=== PATIENT | male | born 1965 | race Caucasian/White ===

== ENCOUNTER 2020-02-22 11:44 | Outpatient (CLI) | payer BC, SELFPAY ==
--- NOTE | ~2020-02-22 | XR_ITS ---
EXAMINATION: XR chest 2V EXAM DATE: 02/22/2020 12:05 INDICATION: Wheezing. TECHNIQUE: Frontal and lateral projections of the chest obtained and reviewed. There is no prior rayna dy for comparison. FINDINGS: The lungs are clear. There are no pleural effusions. The cardiomediastinal silhouette is within normal limits. There is no pneumothorax suspected. The bones and soft tissues are unremarka ble. IMPRESSION: No acute cardiopulmonary findings. Reviewed, dictated and finalized at location A.
== END 2020-02-22 11:45 | disposition home or self-care (01) ==
PROVIDERS: PCP Family Medicine; Visit Provider Family Medicine
DX: R06.2 Wheezing (principal)
CPT/HCPCS: 71046

== ENCOUNTER → 2020-06-15 11:45 | Outpatient (CLI) | payer OTHER, SELFPAY ==
--- NOTE | ~2020-06-15 | US_ITS ---
EXAMINATION: US renal BI EXAM DATE: 06/15/2020 12:08 INDICATION: Acute kidney failure. TECHNIQUE: Multiple grayscale and Doppler images of the kidneys were obtained (by a technologist who performed the scan) and subsequently reviewed. There is no prior study for comparison. FINDINGS: Right kidney: There is normal contour and echogenicity. It measures 10.5 x 6.4 x 5.6 centimeters. T here are no focal renal lesions identified. There is no hydronephrosis. Left kidney: There is normal contour and echogenicity. It measures 10.4 x 5.3 x 5.5 centimeters. The re is a 1 cm cyst. There is no hydronephrosis. Bladder is undistended. IMPRESSION: Sonographically unremarkable kidneys. Reviewed, dictated and finalized at location A. [employer] EQUIPMENT SUPERVISOR
== END ==
PROVIDERS: PCP Family Medicine; Visit Provider Internal Medicine Nephrology
DX: N17.8 Other acute kidney failure (principal)
CPT/HCPCS: 76775

== ENCOUNTER → 2020-09-19 02:17 | Outpatient (CLI) | payer OTHER, SELFPAY ==
[2020-09-19 17:06] LABS: SARS-CoV-2 RNA PCR Negative
== END ==
PROVIDERS: Physician Assistant; PCP Family Medicine; Visit Provider Internal Medicine Nephrology
DX: Z01.812 Encounter for preprocedural laboratory examination (principal); Z20.822 Contact with and (suspected) exposure to COVID-19
CPT/HCPCS: C9803; U0003; U0005

== ENCOUNTER 2020-09-23 10:21 | Outpatient (CLI) | payer OTHER, SELFPAY ==
[2020-09-16 09:18] VITALS: BMI 37.5
[2020-09-23] VITALS (10 sets, daily range): BP systolic 139–165; BP diastolic 11–102; PULSE 44–54; RESP 14–20; O2SAT 97–100
--- NOTE | ~2020-09-23 | US_ITS ---
EXAMINATION: US biopsy renal DATE: 09/23/2020 16:35 INDICATION: Chronic stage IV kidney disease TECHNIQUE: The procedure including the risks, benefits, and alternatives was discussed with the patie nt. Risks discussed included bleeding and infection. The patient understood the risks and agreed to p roceed. A timeout was performed to verify the patient's name, date of , and procedure to be p erformed. The skin overlying the left kidney was prepped and draped in usual sterile fashion. Anest hetic was administered with 1% lidocaine subcutaneously. An 18 gauge core biopsy needle was then use d to obtain 3 core biopsy specimens under continuous sonographic guidance. The entry site was cleaned and dressed. There were no immediate complications. FINDINGS: Ultrasound images demonstrate the needle in the kidney. IMPRESSION: 1. Ultrasound-guided random left kidney core needle biopsy. Reviewed, dictated and finalized at location A.
[2020-09-23 11:19] LABS: Mean Platelet Volume 9.4 fl (7.4-10.4); Platelet Count Result 193 k/mm3 (150-375)
[2020-09-23 12:13] LABS: Prothrombin Time 13.9 Seconds (11.1-14.7)
[2020-09-23] MEDS: cloNIDine HCL 0.2 MG TABLET PO (14:47)
--- NOTE | 2020-09-23 17:46 | SUR.PHASEII ---
DR HOLDER NOTIFIED THAT PT FLANK SITE IS STILL DRY INTACT WITH NO OBVIOUS SIGNS OF BLEEDING. PT DISCHARGED HOME WITH HIS MOTHER.
== END 2020-09-23 17:35 | disposition home or self-care (01) ==
PROVIDERS: Radiology Diagnostic Radiology; PCP Family Medicine; Visit Provider Internal Medicine Nephrology
DX: N18.4 Chronic kidney disease, stage 4 (severe) (principal); I12.9 Hypertensive chronic kidney disease with stage 1 through stage 4 chronic kidney disease, or unspecified chronic kidney disease; R80.8 Other proteinuria
CPT/HCPCS: 36415; 50200; 76942; 85049; 85610; 88300; 88305; 88313; 88329; 88346; 88348; 88350; A9270; C9803; U0003; U0005

== ENCOUNTER → 2020-10-08 06:36 | Outpatient (CLI) | payer OTHER, SELFPAY ==
[2020-10-08 20:06] LABS: SARS-CoV-2 RNA PCR Negative
== END ==
PROVIDERS: Physician Assistant; PCP Family Medicine; Visit Provider Family Medicine
DX: Z20.822 Contact with and (suspected) exposure to COVID-19 (principal); R09.89 Other specified symptoms and signs involving the circulatory and respiratory systems
CPT/HCPCS: C9803; U0003; U0005

== ENCOUNTER 2022-05-29 07:31 | Outpatient (CLI) | payer MEDICARE, OTHER, SELFPAY ==
--- NOTE | ~2022-05-29 | NM_ITS ---
EXAMINATION: NM cynthia stress w perfusion DATE: 05/29/2022 11:37 INDICATION: Abnormal electrocardiogram. Dyspnea. TECHNIQUE: Rest images were obtained following intravenous administration of 10.5 mCi Tc99m tetrofosm in (Myoview). The patient was infused intravenously with Lexiscan (regadenoson). Then, 32.7 mCi Tc99m tetrofosmin (Myoview) was administered intravenously, and stress images were obtained. Data was antwon nstructed into short axis and horizontal and vertical long axis SPECT images. Gated SPECT images were also obtained. COMPARISON: None. FINDINGS: There is no definite reversible or fixed perfusion abnormality to suggest ischemia or infar ction. There is no segmental wall motion abnormality. Left ventricular ejection fraction measures 5 1%. IMPRESSION: 1. No definite ischemia or infarct. 2. Normal left ventricular ejection fraction measuring 51%. Reviewed, dictated and finalized at location A. [employer]
--- NOTE | 2022-05-29 07:55 | EST_ITS ---
Patient Info Name: Ole Vale Age: 57 years : 1965 Gender: Male Ht: 75 in Wt: 315 lbs BSA: 2.80 m2 HR: 75 bpm BP: 143 / 97 mmHg Heart Rhythm: Sinus Rhythm Exam Date: 05/29/2022 9:44 AM Exam Location: [facility] Stress Patient Status: Outpatient Admit Date: 05/29/2022 Staff Ordering Physician: Kwesi Sylvester DO Attending Provider: Kwesi Sylvester DO Exercise Technologist: Rhina Morales CT Exercise Physician: Kwesi Sylvester DO Exam Type: CA stress cynthia w NM Study Info Indications R06.09 - Other forms of dyspnea A regadenoson stress test was performed. Summary 1. 1. Negative lexiscan stress test for ischemic ST changes by ECG criteria. 2. 2. Baseline hypertension. 3. 3. Nuclear scan to follow and will be reported separately. Please correlate with it. 4. 4. Patient informed of the above results. Protocol: Lexiscan Stress ECG Details Stage: REST Duration (min): 0 min : 58 sec HR (bpm): 74 SBP (mmHg): 143 DBP (mmHg): 97 Stage: REST Duration (min): 7 min : 29 sec HR (bpm): 81 SBP (mmHg): 143 DBP (mmHg): 97 Stage: STAGE 1 Duration (min): 1 min : 0 sec HR (bpm): 88 SBP (mmHg): 167 DBP (mmHg): 83 Stage: RECOVERY Duration (min): 1 min : 0 sec HR (bpm): 85 SBP (mmHg): 167 DBP (mmHg): 83 Stage: RECOVERY Duration (min): 2 min : 0 sec HR (bpm): 81 SBP (mmHg): 167 DBP (mmHg): 83 Stage: RECOVERY Duration (min): 3 min : 0 sec HR (bpm): 80 SBP (mmHg): 164 DBP (mmHg): 85 Stage: RECOVERY Duration (min): 3 min : 2 sec HR (bpm): 80 SBP (mmHg): 164 DBP (mmHg): 85 Rest HR: 81 bpm Peak HR: 89 bpm Rest Sys BP: 143 mmHg Peak Sys BP: 167 mmHg Max Pred HR: 162 bpm % Max Pred HR: 55 % Target HR: 138 bpm Max RPP: 14,863 bpm*mmHg Termination Reason: Completed protocol Cardiac Symptoms: Shortness of breath Total Time: 1 min : 0 sec Rest Rock BP: 97 mmHg [place] BP: 83 mmHg Total Dose: 0.4 mg Resting ECG Sinus rhythm, minimal Q waves in inferior leads, borderline T wave in high lateral leads. Stress ECG No ST changes. Arrhythmias None. Report Signatures
--- NOTE | 2022-05-29 07:55 | ECHO_ITS ---
Patient Info Name: Ole Vale Age: 57 years : 1965 Gender: Male Ht: 75 in Wt: 316 lbs BSA: 2.81 m2 HR: 78 bpm BP: 150 / 51 mmHg Technical Quality: Fair Exam Date: 05/29/2022 8:00 AM Exam Location: [facility] Pulmonary Patient Status: Outpatient Admit Date: 05/29/2022 Staff Ordering Physician: Kwesi Sylvester DO Straight Tooth Gear Generator Operator: Nikki Teran RDCS Attending Provider: Kwesi Sylvester DO Referring Physician: Higinio RODRIGUEZ; Exam Type: CA echo doppler color flow Study Info Indications R06.09 - Other forms of dyspnea Complete two-dimensional, color flow and Doppler transthoracic echocardiogram is performed. Summary 1. Complete two-dimensional, color flow and Doppler transthoracic echocardiogram is performed. 2. Left ventricular chamber dimension is normal. 3. Left ventricular systolic function is normal, estimated at 55-60%. 4. There is moderately increased left ventricular wall thickness. 5. The left ventricular diastolic function is grade I diastolic dysfunction. 6. E/e' 22 is elevated. 7. Global longitudinal strain is abnormal at -9.4%. 8. Left atrial chamber dimension is mildly enlarged. 9. There is mild aortic valve sclerosis. 10. The mitral valve has moderately calcified annulus. 11. No pulmonary hypertension, estimated pulmonary arterial systolic pressure is 19 mmHg. Left Ventricle E/e' 22 is elevated. Global longitudinal strain is abnormal at -9.4%. Left ventricular chamber dimension is normal. Left ventricular systolic function is normal, estimated at 55-60%. There is moderately increased left ventricular wall thickness. The left ventricular diastolic function is grade I diastolic dysfunction. Right Ventricle Right ventricular chamber dimension is normal. Right ventricular systolic function is normal. Left Atria Left atrial chamber dimension is mildly enlarged. Right Atria Right atrial chamber dimension is normal. Aortic Valve The aortic valve is trileaflet. There is mild aortic valve sclerosis. There is no aortic valve stenosis. There is no aortic valve regurgitation. Pulmonic Valve There is no pulmonic regurgitation. Mitral Valve The mitral valve has moderately calcified annulus. There is no mitral valve stenosis. There is no mitral valve regurgitation. Tricuspid Valve There is no tricuspid valve regurgitation. No pulmonary hypertension, estimated pulmonary arterial systolic pressure is 19 mmHg. Pericardium/Pleural There is no pericardial effusion. Inferior Vena Cava Normal inferior vena cava with >50% collapse upon inspiration consistent with normal right atrial pressure, 5 mmHg. Aorta The aortic root size at the sinus of Valsalva is normal. Left Ventricular Outflow Tract Name Value Normal LVOT 2D LVOT Diameter 2.1 cm LVOT Doppler LVOT Peak Gradient 7 mmHg LVOT Mean Gradient 4 mmHg LVOT VTI 26 cm LVOT VTI/AV VTI Ratio 0.9 LVOT Stroke Volume 88 ml LVOT CO 6.5 l/min
== END 2022-05-29 07:32 | disposition home or self-care (01) ==
LOC: ANHCARD 07:50
PROVIDERS: PCP Family Medicine; Visit Provider Internal Medicine Cardiovascular Disease
DX: R06.09 Other forms of dyspnea (principal); I35.8 Other nonrheumatic aortic valve disorders
CPT/HCPCS: 78452; 93017; 93306; A9502; J2785

== ENCOUNTER 2022-07-21 08:09 | Outpatient (CLI) | payer MEDICARE, OTHER, SELFPAY ==
--- NOTE | 2022-08-11 12:06 | WPDHOMESLEEP ---
Sleep Study - Home Unattended Date of Study: 07/21/22 Ordering Provider: Kwesi Sylvester DO Interpreting Provider: Brenda Jeronimo DO Home Sleep Study Type: Watch PAT Height: 1.91 m Weight: 149.685 kg Body Mass Index: 41.2 Neck Circumference (inches): 20.5 [place]: 17 Reason for Sleep Study Daytime hypersomnia Sleep History The patient is a 57-year-old male with hypertension, glomerulonephritis, chronic hepatitis C, , dyslipidemia, IgA nephropathy, CKD on PD, anxiety and history of tobacco use that had a sleep study ordered by his returned telephone equipment appraiser for evaluation of sleep apnea. The patient occasionally awakens from sleep short of breath. He occasionally awakens at night with heartburn, belching or cough. He frequently snores loudly enough that others complain. He denies having trouble sleeping when he has a cold. He rarely wakes up gasping for air throughout the night. He frequently has breathing problems at night observed by himself or others. He occasionally sweats excessively at night. He frequently has heart palpitations or irregular heartbeats during the night. He frequently falls asleep during the day but never while driving. He denies cataplexy and hypnagogic / hypnopompic hallucinations. He frequently has trouble at school or work due to sleepiness. He occasionally feels unable to move her waking up or falling asleep. He denies feeling afraid of going to sleep. He rarely has nightmares. He rarely remembers his dreams. He denies having thoughts racing through his mind. He frequently feels sad or depressed. He occasionally has anxiety. He occasionally has muscular tension. He rarely notices parts of his body jerk. He rarely kicks during the night. He occasionally has crawling and aching feelings in his legs but denies having leg pain during the night. He denies grinding his teeth during sleep and denies awakening with morning jaw pain. He is occasionally bothered by pain during the day but never awakened by pain during the night. He rarely wakes up feeling stiff in the morning. He rarely wakes up with sore and achy muscles. He rarely wakes up with pain in the neck, spine or other joints. He goes to bed at midnight on both weekdays and weekends. He is able to fall asleep shortly. He wakes up 6-8 times throughout the night to urinate. He is able to fall back asleep within a few minutes. He wakes up at 8:30 a.m. on weekdays and at 9:00 a.m. on the weekends. He typically gets 5 hours of sleep per night. He will stay in bed for 15 minutes after waking up in the morning. He currently lives with his mother. He does not consume any caffeinated beverages within 2 hours of bedtime. He does not engage in physical exercise before bedtime. He will watch television before falling asleep. He will take naps in the afternoon or the evening and they are refreshing. He drinks 12 oz of caffeinated soda per day. He drinks 45-50 oz 7 alcoholic beverage per day. He is a former smoker. He currently uses THC gummies. [facility] Past Medical History Medical History Acute kidney failure Benign hypertension without CHF Glomerulonephritis Hep C w/o coma, chronic Hepatitis C History of renal dialysis Osteomyelitis of lumbar spine Renal hypertension, non-vascular Sepsis Family History Family History Mother Hypertension Family history of malignant neoplasm Family history of type 2 diabetes mellitus Diabetes mellitus Family history of diabetes mellitus in first degree relative Grandparent Cerebrovascular accident Sibling Diabetes mellitus Hypertension Father Patient's father is in good health Hypertension Family history of kidney disease Social History Social History Social History: Smoking status: Former smoker Tobacco type:
[2022-08-11 12:17] VITALS: BMI 41.2
== END 2022-07-22 09:31 | disposition home or self-care (01) ==
LOC: ANHCSM 08:13
PROVIDERS: PCP Family Medicine; Visit Provider Internal Medicine Cardiovascular Disease
DX: G47.33 Obstructive sleep apnea (adult) (pediatric) (principal); G47.10 Hypersomnia, unspecified; Z87.891 Personal history of nicotine dependence; I10 Essential (primary) hypertension
CPT/HCPCS: 95800

== ENCOUNTER 2022-10-07 09:07 | Outpatient (CLI) | payer OTHER, MEDICARE, SELFPAY ==
--- NOTE | 2022-10-07 14:03 | P.PCNPFT_ITS ---
PFT Procedure Performed PFT Procedure Performed Spirometry with Pre/Post Bronchodilator Plethysmography (Lung Vol) Diffusing Cap (DLCO) Flow Vol Loop PFT Interpretation Lung volumes were measured with the body plethysmography method. The mildly diminished total lung capacity could be related to restrictive respiratory disease. Spirometry showed normal expiratory flow rates and a diminished FEV1 to FVC ratio 60% indicative of mild obstructive airway disease. Following administration of a bronchodilator there was significant increase in the FEV1. Lung diffusion capacity is within the normal range at 92% predicted. The flow- volume loop is consistent with moderate obstructive airway disease. Impression: Combined restrictive respiratory and obstructive airway disease with significant response to bronchodilators on this testing. Lung diffusion capacity within the normal range.
--- NOTE | 2022-10-07 14:07 | WPDSIXMINUTE ---
Six Minute Walk Procedure Procedure Performed Pulmonary Stress Test (6 min walk) Six Minute Walk Six Minute Walk: This 6 minute walk test was carried out with the patient breathing ambient air. The pre walk baseline oxyhemoglobin saturation was 95%. The patient walked approximately 244 m with no stops during walking. During the walk the oxyhemoglobin saturation remained in range of 92% to 98%. The perceived dyspnea on the Christopher scale was 1 at baseline and increased to 3 at the end of testing. Impression: No evidence of oxyhemoglobin desaturation on this testing.
== END 2022-10-07 09:08 | disposition home or self-care (01) ==
LOC: ANHPFT 09:08
PROVIDERS: PCP Family Medicine; Visit Provider Nurse Practitioner Family
DX: R06.09 Other forms of dyspnea (principal); R94.2 Abnormal results of pulmonary function studies
CPT/HCPCS: 94060; 94618; 94726; 94729

== ENCOUNTER 2022-10-12 08:19 | Outpatient (CLI) | payer MEDICARE, OTHER, SELFPAY ==
--- NOTE | 2022-11-02 11:40 | WPDSLEEPSTUD ---
Sleep Study Date of Study: 10/12/22 Ordering Provider: Ricardo Ham APRN Interpreting Physician: Brenda Jeronimo DO Sleep Study Type: CPAP Titration Height: 1.91 m Weight: 149.685 kg Body Mass Index: 41.2 Neck Circumference (inches): 20.5 [place]: 9 Reason for Sleep Study The patient had a WatchPAT home sleep test on 07/21/2022 that showed an overall AHI of 39.4 with desaturation down to 78%. He had 10.7% of total sleep time in probable [place] respirations. Sleep History The patient is a 57-year-old male with hypertension, glomerulonephritis, chronic hepatitis C, , dyslipidemia, IgA nephropathy, CKD on PD, anxiety and history of tobacco use that had a sleep study ordered by his ballast inspector for evaluation of sleep apnea.? The patient occasionally awakens from sleep short of breath.? He occasionally awakens at night with heartburn, belching or cough.? He frequently snores loudly enough that others complain.? He denies having trouble sleeping when he has a cold.? He rarely wakes up gasping for air throughout the night.? He frequently has breathing problems at night observed by himself or others.? He occasionally sweats excessively at night.? He frequently has heart palpitations or irregular heartbeats during the night.? He frequently falls asleep during the day but never while driving.? He denies cataplexy and hypnagogic / hypnopompic hallucinations.? He frequently has trouble at school or work due to sleepiness.? He occasionally feels unable to move her waking up or falling asleep.? He denies feeling afraid of going to sleep.? He rarely has nightmares.? He rarely remembers his dreams.? He denies having thoughts racing through his mind.? He frequently feels sad or depressed.? He occasionally has anxiety.? He occasionally has muscular tension.? He rarely notices parts of his body jerk.? He rarely kicks during the night.? He occasionally has crawling and aching feelings in his legs but denies having leg pain during the night.? He denies grinding his teeth during sleep and denies awakening with morning jaw pain.? He is occasionally bothered by pain during the day but never awakened by pain during the night.? He rarely wakes up feeling stiff in the morning.? He rarely wakes up with sore and achy muscles.? He rarely wakes up with pain in the neck, spine or other joints.? He goes to bed at midnight on both weekdays and weekends.? He is able to fall asleep shortly.? He wakes up 6-8 times throughout the night to urinate.? He is able to fall back asleep within a few minutes.? He wakes up at 8:30 a.m. on weekdays and at 9:00 a.m. on the weekends.? He typically gets 5 hours of sleep per night.? He will stay in bed for 15 minutes after waking up in the morning.? He currently lives with his mother.? He does not consume any caffeinated beverages within 2 hours of bedtime.? He does not engage in physical exercise before bedtime.? He will watch television before falling asleep.? He will take naps in the afternoon or the evening and they are refreshing.? He drinks 12 oz of caffeinated soda per day.? He drinks 45-50 oz 7 alcoholic beverage per day.? He is a former smoker.? He currently uses THC gummies. [facility] Past Medical History Medical History Acute kidney failure Benign hypertension without CHF Glomerulonephritis Hep C w/o coma, chronic Hepatitis C History of renal dialysis Osteomyelitis of lumbar spine Renal hypertension, non-vascular Sepsis Family History Family History Mother Hypertension Family history of malignant neoplasm Family history of type 2 diabetes mellitus Diabetes mellitus Family history of diabetes mellitus in first degree relative Grandparent Cerebrovascular accident Sibling Diabetes mellitus Hypertension Father Patient's father is in good health Hypertension Family history of kidney disease S
[2022-11-02 12:01] VITALS: BMI 41.2
== END 2022-10-13 06:07 | disposition home or self-care (01) ==
LOC: ANHCSM 08:20
PROVIDERS: PCP Family Medicine; Visit Provider Nurse Practitioner Family
DX: G47.30 Sleep apnea, unspecified (principal); G47.33 Obstructive sleep apnea (adult) (pediatric)
CPT/HCPCS: 95811

== ENCOUNTER 2022-12-01 17:27 | Inpatient (IN) | payer MEDICARE, SELFPAY ==
[2022-12-01] VITALS (8 sets, daily range): BP systolic 110–168; BP diastolic 74–94; PULSE 98–110; RESP 20–30; TEMP 36.9–37.2; O2SAT 98–100; BMI 41.0
--- NOTE | ~2022-12-01 | XR_ITS ---
Portable chest x-ray Comparison: 02/22/2020 Clinical History: Tube placed Findings: Endotracheal tube and NG tube are in satisfactory positions. There is mild to moderate pul monary edema pattern with central congestive changes. Cardiomediastinal silhouette is prominent, pos sibly due to AP technique. Bones and soft tissues are unremarkable. Impression: Support tubes, as above. Mild to moderate pulmonary edema pattern with central congestive changes. Reviewed, dictated and finalized at location . Impression: Support tubes, as above. Mild to moderate pulmonary edema pattern with central congestive changes.
--- NOTE | ~2022-12-01 | XR_ITS ---
Portable chest x-ray Comparison: 12/02/2022 at 1:55 AM Clinical History: Line placement Findings: Left-sided central venous line tip is at the superior left mediastinum. NG tube and ET tub e are in satisfactory positions. Mild to moderate pulmonary edema pattern is again present. Possible minimal pleural effusions. No pneumothorax. Cardiomediastinal silhouette is stable. Bones and soft t issues are unremarkable. Impression: Left IJ line tip is at the superior left mediastinum. Consider advancement into the SVC. Additional support tubes remain in place, as above. Persistent mild to moderate pulmonary edema possible minimal pleural effusions. Reviewed, dictated and finalized at location . Impression: Left IJ line tip is at the superior left mediastinum. Consider advancement into the SVC. Additional support tubes remain in place, as above. Persistent mild to moderate pulmonary edema possible minimal pleural effusions.
--- NOTE | ~2022-12-01 | XR_ITS ---
Supine portable view of the abdomen Clinical history: NG tube placement Findings: NG tube is in satisfactory position. Bowel gas pattern is nonspecific. No evidence for obst ruction or free air. No abnormal mass lesion or calcification is seen. Osseous structures are intact. Impression: NG tube in satisfactory position. Reviewed, dictated and finalized at location . Impression: NG tube in satisfactory position.
--- NOTE | ~2022-12-01 | CT_ITS ---
EXAMINATION: CTA chest abdomen pelvis DATE: 12/01/2022 18:27 INDICATION: Chest and abdominal pain. TECHNIQUE: Computed tomographic angiography (CTA) of the chest, abdomen, and pelvis was performed wit h 100 mL Omnipaque-350 intravenous contrast. Automated exposure control and iterative reconstruction technique were employed. The dose-length product was 1996.89 mGy-cm. Maximum intensity projection 3D- reconstructions of the aorta and other arteries were constructed by the technologist on a separate wo rkstation. COMPARISON: CT abdomen and pelvis 03/07/2014 FINDINGS: CHEST CTA: There is mild emphysema. There are dependent airspace and groundglass opacities in the lower lobes. T here are scattered small peripheral airspace opacities in the lungs bilaterally. No pleural effusion. The heart size is normal. There are coronary artery calcifications. No pericardial effusion. There i s mild aortic atherosclerosis. No aneurysm or dissection. There is moderate thoracic spondylosis. ABDOMEN AND PELVIS CTA: The liver is normal. The gallbladder is distended and contains a gallstone. The spleen, pancreas, and right adrenal gland are normal. There is chronic thickening of left adrenal gland, likely benign. Th ere are cysts in the kidneys measuring up to 2.1 cm on the right. There is mild atrophy of the kidney s. The prostate is mildly enlarged. A peritoneal dialysis catheter is noted. There are no dilated loo ps of bowel. The appendix is normal. There are no pathologically enlarged lymph nodes. There is no fr ee intraperitoneal fluid. There is mild aortic atherosclerosis. There is severe lumbar spondylosis. T here is interbody fusion at T12-L1. IMPRESSION: 1. Mild aortic atherosclerosis. No aneurysm or dissection. 2. Multifocal lung disease, likely pneumonia. 3. Mild emphysema. 4. Cholelithiasis. Gallbladder distention may be secondary to fasting. Correlate with physical exam t o exclude acute cholecystitis. Reviewed, dictated and finalized at location E. IMPRESSION: 1. Mild aortic atherosclerosis. No aneurysm or dissection. 2. Multifocal lung disease, likely pneumonia. 3. Mild emphysema. 4. Cholelithiasis. Gallbladder distention may be secondary to fasting. Correlat e with physical exam to exclude acute cholecystitis.
--- NOTE | ~2022-12-01 | XR_ITS ---
Portable chest x-ray Comparison: 12/02/2022 at 3:11 AM Clinical History: Respiratory distress Findings: Endotracheal tube and NG tube are in satisfactory positions. Left IJ line tip remains at t he superior mediastinum. There is mild pulmonary edema pattern. Small left pleural effusion present. Cardiomediastinal silhouette is stable. Bones and soft tissues are unremarkable. Impression: Mild pulmonary edema pattern with small left pleural effusion. Left IJ line tip remains at the superior left mediastinum. Advancement into the SVC is advised. ET tube and NG tube are in satisfactory positions. Reviewed, dictated and finalized at location . Impression: Mild pulmonary edema pattern with small left pleural effusion. Left IJ line tip remains at the superior left mediastinum. Advancement into the SVC is advised. ET tube and NG tube are in satisfactory positions.
--- NOTE | 2022-12-01 17:29 | ECG_ITS ---
Measurements Intervals [place] Rate: 103 P: 40 TN: 141 QRS: 11 QRSD: 97 T: 79 QT: 305 QTc: 401 Interpretive Statements SINUS TACHYCARDIA POSSIBLE LEFT ATRIAL ENLARGEMENT MINIMAL Q WAVES- ANTEROLAT/HIGH LAT LEADS BORDERLINE ST-T WAVE ABNORMALITY- HIGH LATERAL LEADS BORDERLINE ECG NO PREVIOUS ECG AVAILABLE FOR COMPARISON Electronically Signed On 12-01-2022 20:22:39 CDT by Kwesi Sylvester D.O.
[2022-12-01] MEDS: MORPHINE SULFATE (*CRX) 4 MG/ML INJ IV PUSH ×2 (17:51→18:55)
--- NOTE | 2022-12-01 17:59 | ED.SOB ---
HPI - SOB/Dyspnea General Chief Complaint: Shortness of Breath/Dyspnea Stated Complaint: SOB History of Present Illness HPI Narrative: This is a 57-year-old male with past history of renal failure on hemodialysis, who is brought in by EMS for shortness of breath and chest pain. The patient states his chest pain and shortness of breath began this morning and progressively worsened. He denies any known trauma, nausea or loss of consciousness. EMS reports on arrival, the patient was hypoxic. He was started on 6 L of O2 with improvement of sats to 96%. The patient took 4 aspirin. Related Data Home Medications Medication Instructions Recorded Confirmed furosemide 80 mg tablet 80 mg PO BID 04/30/22 09/16/22 Allergies Allergy/AdvReac Type Severity Reaction Status Date / Time No Known Allergies Allergy Verified 12/01/22 17:30 Review of Systems Review of Systems: CONSTITUTIONAL: Denies fever, chills, or sweats. CARDIOVASCULAR: Chest pain denies palpitations, or edema. RESPIRATORY: Dyspnea denies cough GASTROINTESTINAL: Abdominal pain denies nausea, vomiting, or diarrhea. GENITOURINARY: Denies dysuria or hematuria. SKIN: Denies rash or itching. MUSCULOSKELETAL: Denies back pain, joint pain, or myalgia. NEUROLOGIC: Denies headache, numbness, dizziness, or weakness. PSYCHIATRIC: Denies anxiety or depression. [facility] Past Medical History Medical History Acute kidney failure Benign hypertension without CHF Glomerulonephritis Hep C w/o coma, chronic Hepatitis C History of renal dialysis Osteomyelitis of lumbar spine Renal hypertension, non-vascular Sepsis Family History Family History Mother Hypertension Family history of malignant neoplasm Family history of type 2 diabetes mellitus Diabetes mellitus Family history of diabetes mellitus in first degree relative Grandparent Cerebrovascular accident Sibling Diabetes mellitus Hypertension Father Patient's father is in good health Hypertension Family history of kidney disease Social History Social History Social History: Smoking packs per day: 0.75 Smoking cigarettes per day: 15.0 Years smoked: 20 Smoking pack-years: 15.00 Smoking status: Former smoker Tobacco type: cigarettes and e-cigarettes/vaping Second hand tobacco smoke exposure: No Smoking end date: 05/24/05 Additional smoking assessment comments: Currently vapes. Alcohol intake: former Substance use: never Substance use type: does not use Lack of Transportation: No Lack of Food: Never True Current Housing: I Have Housing Concerned About Future Housing: No Difficulty Paying Gas/Electric Bills: No Difficulty Paying for Meds: No Currently Unemployed: No Education: Bachelor's Degree Difficulty w/ Childcare or Family Care: No Living arrangements: alone Occupation/Education: retired Gender identity (if verbalized by the patient): Male Sexual Orientation (if Verbalized by the Patient): Straight or Heterosexual Exam Narrative: GENERAL: Well-developed, well-nourished, appears uncomfortable HEAD: Normocephalic, atraumatic. EYES: PERRLA and EOMI. ENT: Nares clear, no rhinorrhea or epistaxis. Mucous membranes moist. Oropharynx without tonsillar hypertrophy exudate or other lesions. NECK: Supple. No adenopathy or masses. No JVD CHEST: Clear to auscultation. No respiratory distress. No wheezes rales or rhonchi HEART: Tachycardic with regular rhythm. No murmur heard. 1+ bilateral lower extremity pulses ABDOMEN: Soft, nontender, nondistended, normal active bowel sounds. EXTREMITIES: Normal range of motion. No edema. AV fistula with good thrill in the left arm SKIN: Cyanotic with mottling noted to the bilateral lower extremities and cool. Skin otherwise d
--- NOTE | 2022-12-01 18:10 | PC.NURSE ---
Pt to CT via stretcher at this time
[2022-12-01 18:16] LABS: Basophils Percent Auto 1.3 % (0.2-1.2); Hemoglobin 11.4 g/dL (14.0-18.0); Immature Granulocyte Absolute 0.12 K/mm3 (0.00-0.031); Immature Granulocyte Percent A 3.8 % (0-0.5); Immature Platelet Fraction Pct 5.6 % (0.9-11.2); Lymphocytes Percent Auto 3.2 % (18.3-44.2); Mean Corpuscular HGB Conc 33.5 g/dl (32-36); Mean Corpuscular Hemoglobin 30.5 pg (26-34); Mean Corpuscular Volume 90.9 fl (80-100); Mean Platelet Volume 12.2 fl (7.4-10.4); Monocytes Absolute Auto 0.3 K/mm3 (0.1-0.6); Monocytes Percent Auto 10.5 % (2.6-8.5); Neutrophils Absolute Auto 2.6 K/mm3 (1.3-6.7); Neutrophils Percent Auto 81.2 % (45.5-73.1); Platelet Count Result 65 k/mm3 (150-375); Red Blood Count 3.74 M/mm3 (4.6-6.20); Red Cell Distribution Width 15.6 % (11.5-14.5); White Blood Count 3.1 K/mm3 (4.5-10.0)
[2022-12-01 18:24] LABS: INR 1.4; Prothrombin Time 17.9 Seconds (11.1-14.7)
[2022-12-01 18:25] LABS: Partial Thromboplastin Time 27.9 SECONDS (22.3-36.8)
[2022-12-01 18:32] LABS: Albumin Level 3.4 g/dL (3.5-5.1); Alkaline Phosphatase 56 U/L (38-126); Anion Gap 25 mmol/L (8-16); Aspartate Amino Transferase 125 U/L (17-59); Blood Urea Nitrogen 92 mg/dL (9-20); Carbon Dioxide 14 mmol/L (22-30); Chloride 97 mmol/L (98-107); Estimated CRCL calculation 14 ml/min; Estimated Glomerular Filt Rate 7; Glucose 130 mg/dL (65-110); Potassium 4.7 mmol/L (3.4-5.0); Sodium 136 mmol/L (137-145)
[2022-12-01 18:34] LABS: Lactic Acid Reflex 6.7 mmol/L (0.7-2.0)
[2022-12-01 18:38] LABS: Anisocytosis 1+ (NORMAL); Platelet Estimate Decreased (Adequate); Poikilocytosis 1+ (NORMAL)
[2022-12-01 18:39] LABS: Burr Cells 1+ (NORMAL); Ovalocytes 1+ (NORMAL); Schistocytes Rare (NORMAL); Tear Drop Cells 1+ (NORMAL)
[2022-12-01] MEDS: SODIUM CHLORIDE 0.9% IV 1,000 ML 999 ML IV CONT (18:55)
[2022-12-01 19:04] LABS: Alanine Aminotransferase 74 U/L (6-50)
[2022-12-01] MEDS: cefTRIAXone 2 GM/NS 100 ML 2 GM/100 ML BAG IVPB (19:16)
[2022-12-01] MEDS: AZITHROMYCIN 500 MG/NS 250 ML 500 MG/250 ML BAG 250 MG IVPB (19:49)
[2022-12-01] MEDS: HEPARIN SOD/D5W 100 UNITS/ML 25,000 UNITS/250 ML BAG 10 UNITS IV CONT (20:18)
--- NOTE | 2022-12-01 20:34 | PM.IMHP ---
H&P: HPI History of Present Illness Date/Time: 12/01/22 20:34 Chief Complaint: shortness of breath Narrative: This is a 57-year-old male with past medical history significant for morbid obesity, end-stage renal disease on hemodialysis, prior peritoneal dialysis, peritoneal catheter still in place, left upper extremity fistula functioning, hepatitis-C, hypertension. patient presents to the emergency room due to shortness of breath arrived via EMS. Prior to this patient states that he has been his usual state of health. upon arrival to emergency room patient was noted to be cyanotic and in respiratory distress requiring supplemental oxygen which improved his oxygenation and pulse oximetry. at the time of my visit patient had obtundation, lethargy, unable to really give much history, really not able to contribute in a meaningful way to history taking. Preliminary workup was significant for CT angiogram of chest abdomen and pelvis was reported as: EXAMINATION: CTA chest abdomen pelvis DATE: 12/01/2022 18:27 INDICATION: Chest and abdominal pain. TECHNIQUE: Computed tomographic angiography (CTA) of the chest, abdomen, and pelvis was performed with 100 mL Omnipaque-350 intravenous contrast. Automated exposure control and iterative reconstruction technique were employed. The dose-length product was 1996.89 mGy-cm. Maximum intensity projection 3D-reconstructions of the aorta and other arteries were constructed by the technologist on a separate workstation. COMPARISON: CT abdomen and pelvis 03/07/2014 FINDINGS: CHEST CTA: There is mild emphysema. There are dependent airspace and groundglass opacities in the lower lobes. There are scattered small peripheral airspace opacities in the lungs bilaterally. No pleural effusion. The heart size is normal. There are coronary artery calcifications. No pericardial effusion. There is mild aortic atherosclerosis. No aneurysm or dissection. There is moderate thoracic spondylosis. ABDOMEN AND PELVIS CTA: The liver is normal. The gallbladder is distended and contains a gallstone. The spleen, pancreas, and right adrenal gland are normal. There is chronic thickening of left adrenal gland, likely benign. There are cysts in the kidneys measuring up to 2.1 cm on the right. There is mild atrophy of the kidneys. The prostate is mildly enlarged. A peritoneal dialysis catheter is noted. There are no dilated loops of bowel. The appendix is normal. There are no pathologically enlarged lymph nodes. There is no free intraperitoneal fluid. There is mild aortic atherosclerosis. There is severe lumbar spondylosis. There is interbody fusion at T12-L1. IMPRESSION: 1. Mild aortic atherosclerosis. No aneurysm or dissection. 2. Multifocal lung disease, likely pneumonia. 3. Mild emphysema. 4. Cholelithiasis. Gallbladder distention may be secondary to fasting. Correlate with physical exam to exclude acute cholecystitis. Review of Systems Review of Systems: ROS unobtainable: Yes unobtainable due to mental status ( obtundation, lethargy) PMFSH Past Medical History Medical History Acute kidney failure Benign hypertension without CHF Glomerulonephritis Hep C w/o coma, chronic Hepatitis C History of renal dialysis Osteomyelitis of lumbar spine Renal hypertension, non-vascular Sepsis Family History Family History Mother Hypertension Family history of malignant neoplasm Family history of type 2 diabetes mellitus Diabetes mellitus Family history of diabetes mellitus in first degree relative Grandparent Cerebrovascular accident Sibling Diabetes mellitus Hypertension Father Patient's father is in good health Hypertension Family history of kidney disease Social History Social History Social History: Smoking packs per day: 1 Smokin
--- NOTE | 2022-12-01 20:49 | PC.NURSE ---
Pts mother, Stacy, was called by this RN and given a update and made aware of pts room number and visiting hours. Her number is [phone].
[2022-12-01 21:09] LABS: Reflex Lactic Acid Yes or No Add Lactic
--- NOTE | 2022-12-01 21:49 | ADMGEN ---
This patient, Ole Vale, was admitted to IMU Room 213-01. Patient/family oriented to hospital policies and general routines including ID bracelet, bed and alarms, visiting hours, pain management, procedures, bathroom and other care routines, personal items, smoking policy, room service/diet, and visiting hours. Information on how to activate the Rapid Response Team has been discussed. Patient/Family are encouraged to report perceived risks to care and to ask questions if they do not understand what they are told or what they should do.
[2022-12-01 22:09] LABS: Lactic Acid 3.5 mmol/L (0.7-2.0)
[2022-12-02] VITALS (22 sets, daily range): BP systolic 76–134; BP diastolic 48–94; PULSE 85–115; RESP 16–24; TEMP 35–37.2; O2SAT 91–100; BMI 47.1
--- NOTE | 2022-12-02 | ECHO_ITS ---
Patient Info Name: Ole Vale Age: 57 years : 1965 Gender: Male Ht: 75 in Wt: 376 lbs BSA: 3.08 m2 HR: 103 bpm BP: 83 / 85 mmHg Heart Rhythm: Sinus Rhythm Technical Quality: Poor Exam Date: 12/02/2022 9:03 AM Exam Location: [facility] Pulmonary Exam Room: ICU3 Patient Status: Inpatient Admit Date: 12/02/2022 Staff Ordering Physician: Cristi Butler MD Rn Patient Care: SCOUT Attending Provider: Christopher Ray MD Referring Physician: Carrie GONZALEZ; Exam Type: CA echo dop color flow w con Study Info Indications - shock/NSTMI Complete two-dimensional, color flow and Doppler transthoracic echocardiogram is performed with contrast to opacify the left ventricle and to improve the deliniation of the left ventricle endocardial borders. Summary 1. Technically suboptimal study due to poor sonographic images. 2. Definity contrast administered improved wall motion interpretation. 3. Left ventricular chamber dimension is normal. 4. Left ventricular systolic function is normal, estimated at 55-60%. 5. The left ventricular diastolic function is grade I diastolic dysfunction. 6. E/e' 25 is elevated. 7. Left atrial chamber dimension is moderately enlarged. 8. No pulmonary hypertension, estimated pulmonary arterial systolic pressure is 17 mmHg. Left Ventricle E/e' 25 is elevated. Definity contrast administered improved wall motion interpretation. Technically suboptimal study due to poor sonographic images. Left ventricular chamber dimension is normal. Left ventricular systolic function is normal, estimated at 55-60%. The left ventricular diastolic function is grade I diastolic dysfunction. Right Ventricle Right ventricular chamber dimension is not well visualized. Left Atria Left atrial chamber dimension is moderately enlarged. Right Atria Right atrial chamber dimension is normal. Aortic Valve The aortic valve is probable trileaflet. There is no aortic valve stenosis. There is no aortic valve regurgitation. Pulmonic Valve The pulmonic valve is not well visualized. Mitral Valve There is no mitral valve stenosis. There is no mitral valve regurgitation. Tricuspid Valve There is no tricuspid valve regurgitation. No pulmonary hypertension, estimated pulmonary arterial systolic pressure is 17 mmHg. Pericardium/Pleural There is no pericardial effusion. Inferior Vena Cava Normal inferior vena cava with >50% collapse upon inspiration consistent with normal right atrial pressure, 5 mmHg. Aorta The aortic root size at the sinus of Valsalva is normal. Left Ventricular Outflow Tract Name Value Normal LVOT 2D LVOT Diameter 1.92 cm LVOT Doppler LVOT Peak Gradient 34 mmHg LVOT Mean Gradient 20 mmHg LVOT VTI 43.25 cm LVOT VTI/AV VTI Ratio 1.09 LVOT Stroke Volume 125.71 ml LVOT CO 12.29 l/min LVOT CI 3.99 L/min/m2 Pulmonic Valve Name Value Normal
--- NOTE | 2022-12-02 00:53 | ECG_ITS ---
Measurements Intervals [place] Rate: 97 P: 28 OK: 171 QRS: 11 QRSD: 98 T: 48 QT: 340 QTc: 433 Interpretive Statements SINUS RHYTHM POSSIBLE LEFT ATRIAL ENLARGEMENT MINIMAL Q WAVES- LAT/HIGH LAT LEADS BASELINE ARTIFACT- III, AVL, AVF, V1-V6 BORDERLINE ECG COMPARED TO ECG 12/01/2022 17:32:14 SINUS RHYTHM NOW PRESENT Electronically Signed On 12-02-2022 7:04:41 CDT by Kwesi Sylvester D.O.
--- NOTE | 2022-12-02 01:10 | PC.NURSE ---
pt transfered for elective intubation
--- NOTE | 2022-12-02 01:48 | ECG_ITS ---
Measurements Intervals [place] Rate: 109 P: 49 ME: 166 QRS: -2 QRSD: 103 T: 68 QT: 350 QTc: 473 Interpretive Statements SINUS TACHYCARDIA POSSIBLE LEFT ATRIAL ENLARGEMENT MINIMAL Q WAVES- ANTEROLAT/HIGH LAT LEADS ABNORMAL ECG COMPARED TO ECG 12/02/2022 01:03:49 SINUS TACHYCARDIA NOW PRESENT Electronically Signed On 12-02-2022 7:05:04 CDT by Kwesi Sylvester D.O.
--- NOTE | 2022-12-02 01:58 | PC.NURSE ---
0115 Dr Ray called to evaluate patient. 0117 Dr Ray here to see patient. Patient lethargic, diaphoretic. Bp 92/61. RR 28. Orders received to transfer to ICU. 0130 Transferred to ICU. Report given to Andre MARQUEZ
[2022-12-02] MEDS: MIDAZOLAM 100MG/NS 100ML(*CRX) 100 MG/100 ML BAG IV CONT (02:00)
[2022-12-02] MEDS: FENTANYL 2,500MCG/NS250ML(*CRX 2,500 MCG/250 ML BAG 10 MCG IV CONT (02:00)
[2022-12-02] MEDS: NOREPINEPHRINE 8 MG/D5W 250 ML 8 MG/250 ML BAG 9.38 MG IV CONT (02:00)
--- NOTE | 2022-12-02 02:23 | P.PNCROSS_ITS ---
Event Note Event Note Event Note: Called for change in pt's clinical status; progressively hypoxic and hypotensiv e. Transferred to the ICU, intubated, starting pressors. Pt c/o CP and SOB today and this evening per RN. Pt of Dr. Sylvester, no known CAD, neg Heena in May, Echo May showed EF 55-60%, diast dysfxn, DEBBIE, lung dz, ESRD. Labs: WBC low, Platelet count 60K, trop up to 8, CXR = CHF/pneumonia (personally reviewed), CT reviewed EKGs reviewed. 1730 EKG w/ minimal nonspecific ST and T changes, small Q waves inf.. EKG 00:53 a.m. showed artifact, ST change inf. EKG at 2:[address] change inf w/ concave up st elevation of 0.5-1.0 mm. All personally reviewed. Not very impressive EKG changes and atypical for a STEMI ; Inf STEMI unlikely though not excluded.. Assessment: Pt in shock and resp failure. Borderline EKG; clinical situation looks more like PNA and septic shock. However, in any case, w/ platelet count of 60K, not a candidate for cath/PCI (unable to use anticoagulants/antiplatelet agents, operative procedures etc w/ this degree of thrombocytopenia). Discusses w/ pt's RN, rec repeating CBC to confirm thrombocytopenia, pressors, supportive care, etc.
--- NOTE | 2022-12-02 02:24 | PC.NURSE ---
discussed EKG changes with Dr. Sanchez. Recommends monitoring at this time due to PLT count of 65.
[2022-12-02] MEDS: SODIUM CHLORIDE 0.9% IV 1,000 ML 999 ML (04:09)
[2022-12-02 04:39] LABS: Basophils Percent Auto 1.8 % (0.2-1.2); Hematocrit 34.2 % (42.0-52.0); Immature Granulocyte Absolute 0.39 K/mm3 (0.00-0.031); Immature Granulocyte Percent A 23.6 % (0-0.5); Immature Platelet Fraction Pct 5.3 % (0.9-11.2); Lymphocytes Absolute Auto 0.08 K/mm3 (0.9-3.2); Lymphocytes Percent Auto 4.8 % (18.3-44.2); Mean Corpuscular HGB Conc 32.2 g/dl (32-36); Mean Corpuscular Hemoglobin 30.3 pg (26-34); Mean Corpuscular Volume 94.2 fl (80-100); Mean Platelet Volume 11.1 fl (7.4-10.4); Monocytes Absolute Auto 0.2 K/mm3 (0.1-0.6); Monocytes Percent Auto 9.1 % (2.6-8.5); Neutrophils Percent Auto 60.7 % (45.5-73.1); Nucleated Red Blood Cells Perc 1.2 % (0.0-0.2); Platelet Count Result 50 k/mm3 (150-375); Red Blood Count 3.63 M/mm3 (4.6-6.20); Red Cell Distribution Width 15.8 % (11.5-14.5)
[2022-12-02 04:42] LABS: White Blood Count 1.7 K/mm3 (4.5-10.0)
[2022-12-02 05:04] LABS: Alanine Aminotransferase 117 U/L (6-50); Albumin Level 2.9 g/dL (3.5-5.1); Alkaline Phosphatase 54 U/L (38-126); Anion Gap 23 mmol/L (8-16); Aspartate Amino Transferase 423 U/L (17-59); Blood Urea Nitrogen 95 mg/dL (9-20); Calcium 7.6 mg/dL (8.4-10.2); Carbon Dioxide 15 mmol/L (22-30); Chloride 98 mmol/L (98-107); Estimated CRCL calculation 15 ml/min; Estimated Glomerular Filt Rate 7; Glucose 107 mg/dL (65-110); Magnesium 2.9 mg/dL (1.6-2.3); Potassium 5.7 mmol/L (3.4-5.0); Sodium 136 mmol/L (137-145)
[2022-12-02] MEDS: PIPERACILLIN/TAZ 2.25G/NS 50ML 2.25 GM/50 ML BAG IVPB (05:09)
[2022-12-02 05:12] LABS: Phosphorus 12.9 mg/dL (2.5-4.5)
[2022-12-02 05:36] LABS: Hepatitis B Surface Antigen Negative (Negative)
[2022-12-02 05:38] LABS: Lactic Acid Reflex 2.4 mmol/L (0.7-2.0)
[2022-12-02 05:49] LABS: Alveolar/Arterial O2 Gradient 318.5 mmHg; Base Excess ABG -11.6 mEq/l (+/-2.0); Fractional Inspired Oxygen 100 %; HCO3 ABG 16.3 mEq/l (22.0-26.0); Oxygen Content ABG 16.4 %vol (16.0-22.0); Oxygen Saturation ABG 99.7 % (95.0-100.0); PCO2 ABG 45.2 mmHg (35.0-45.0); PO2 ABG 349.3 mmHg (80.0-100.0); PO2 FiO2 Ratio Arterial Blood 3.49 %; Total Hemoglobin 11.2 g/dL (12.0-18.0)
[2022-12-02 05:52] LABS: Device VENTILATOR; Modified Allen's Test Pass; Site Drawn RIGHT RADIAL; pH ABG 7.176 (7.350-7.450)
[2022-12-02 05:53] LABS: Hepatitis B Surface Anti Res Negative
[2022-12-02 05:53] LABS: Arterial Blood Gas PEEP 8 cmH2O; Arterial Blood Gas Tidal Volume 450 ml; Arterial Blood Gas Vent Mode CMV; Arterial Blood Gas Ventilator rate 16 /MIN
[2022-12-02] MEDS: SODIUM BICARBONATE 8.4% 50 MEQ/50 ML SYRINGE 100 MEQ IV PUSH (07:18)
[2022-12-02] MEDS: CENTRAL LINE FLUSH 10 ML IV PUSH (07:19)
[2022-12-02] MEDS: ALBUTEROL SULFATE NEB 2.5 MG/3 ML INH 15 MG INHALATION (07:52)
[2022-12-02] MEDS: IPRATROPIUM BR 0.02% INH SOLN 0.5 MG/2.5 ML VIAL INHALATION (07:55)
[2022-12-02] MEDS: DEXTROSE 50% 25 GM/50 ML SYRINGE IV PUSH (08:46)
[2022-12-02] MEDS: INSULIN HUMAN REGULAR (*BKC) 100 UNITS/ML 10 UNITS IV PUSH (08:47)
[2022-12-02] MEDS: ALBUMIN HUMAN 25% 25 GM/100 ML 100 ML IVPB (08:47)
[2022-12-02] MEDS: SODIUM POLYSTYRENE SULFONONATE 15 GM/60 ML BTL 30 GM FEED TUBE (08:47)
[2022-12-02] MEDS: PERFLUTREN LIPID MICROSPHERES 1.5 ML VIAL DILUTED TO 10 ML TOTAL VOLUME IV PUSH (09:00)
--- NOTE | 2022-12-02 09:01 | WPDCNINT ---
Assessment and Plan Assessment and plan (1) Acute respiratory failure with hypoxia: Code(s): J96.01 - Acute respiratory failure with hypoxia Status: Acute Assessment and Plan: 12/01/2022: Patient presented with acute onset shortness of breath and chest pain that started in the morning and gradually worsened to over the course of the day and patient presented the ED. -12/01 patient was intubated -currently on CMV mode of ventilation 5 and 50% FiO2 -ABGs reviewed -chest x-ray this morning: Showed mild pulmonary edema pattern with small left pleural effusion, left IJ tip remains in the superior left mediastinum, advancement to the SVC they advised, ETT and NG tube are in satisfactory position -started bronchodilators -sedated with fentanyl and Versed infusion, maintain RASS of 0 to -2, daily spontaneous awakening trials (2) Septic shock: Code(s): A41.9 - Sepsis, unspecified organism; R65.21 - Severe sepsis with septic shock Status: Acute Assessment and Plan: Patient was hypoxic along with hypotension, elevated lactic acid of 6.7, leukopenia, thrombocytopenia -patient was given 1 L IV fluid bolus -central line was inserted and patient was started on Levophed -will maintain MAP > 65 mmHg at all times for adequate end organ perfusion -switched antibiotics to cefepime azithromycin and vancomycin (12/02) -12/01: Blood cultures have been obtained -12/01: Will also order sputum cultures and peritoneal fluid cultures to rule out where SBP (3) Thrombocytopenia: Code(s): D69.6 - Thrombocytopenia, unspecified Status: Acute Assessment and Plan: Thrombocytopenia could be multifactorial, likely related to septic shock, dysfunction of the marrow -will continue to monitor and if it does not start improving will have hematology/oncology evaluate the patient -hold all anti coagulation at this time -SCDs for now (4) ESRD on hemodialysis: Code(s): N18.6 - End stage renal disease; Z99.2 - Dependence on renal dialysis Status: Acute Assessment and Plan: End-stage renal disease on dialysis, nephrology has been consulted -patient also has a peritoneal dialysis catheter, will obtain fluid cultures -will discuss with Nephrology regarding removal of the peritoneal dialysis catheter at some point (5) Non-ST elevation [place] (NSTEMI): Code(s): I21.4 - Non-ST elevation (NSTEMI) myocardial infarction Status: Acute Assessment and Plan: Patient with elevated troponins, EKG showed ST-T changes -appreciate cardiology note in the chart -patient is not a candidate for heparin infusion/anticoagulation due to thrombocytopenia -also not a candidate for PTCA/PCI as unable to use anticoagulation/antiplatelet agents due to thrombocytopenia (6) Hepatitis C: Code(s): B19.20 - Unspecified viral hepatitis C without hepatic coma Status: Acute Assessment and Plan: History hepatitis Plan DVT prophylaxis: SCDs, no chemoprophylaxis due to thrombocytopenia Stress ulcer prophylaxis: Protonix Nutrition: Will start tube feeds today Code Status: Full code Critical Care Time Spent: 51 minutes Due to a high probability of clinically significant, life threatening deterioration, the patient required my highest level of preparedness to intervene emergently and I personally spent this critical care time directly and personally managing the patient. This critical care time included obtaining a history; examining the patient; pulse oximetry; ordering and review of studies; arranging urgent treatment with development of a management plan; evaluation of patient's response to treatment; frequent reassessment; and discussions with other providers. It was exclusive of separately billable procedures and treating other patients and teaching time. Please see Assessment and Plan section and the rest of the note for further information on patient assessment and treatment This dictation may have been
--- NOTE | 2022-12-02 10:12 | P.CONNP_ITS ---
Assessment and Plan Assessment and plan (1) End stage renal disease: Code(s): N18.6 - End stage renal disease Status: Chronic Assessment and Plan: * currently transitioning from peritoneal dialysis to home hemodialysis * not currently stable for any dialytic intervention at this time * still has PD catheter so this could be used for peritoneal dialysis * check PD fluid sample to r/o peritonitis * medically manage K+ for now * follow electrolytes, volume status, and clearance (2) Septic shock: Code(s): A41.9 - Sepsis, unspecified organism; R65.21 - Severe sepsis with septic shock Status: Acute Assessment and Plan: * as evidenced by hypoxia/acute respiratory failure, hypotension, lactic acidosis, leukopenia, and thrombocytopenia * however, was on cellcept and more recently 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 * requiring vasopressor therapy at this time -- s/p central line placement * follow culture data * on antibiotics * follow trend of hemodynamics (3) Acute respiratory failure with hypoxia: Code(s): J96.01 - Acute respiratory failure with hypoxia Status: Acute Assessment and Plan: * likely due to mild fluid overload on top of multipfocal pneumonia based on imaging to date * evidence of emphysema noted by imaging as welll * on mechanical ventilation * weaning once more stable (4) Non-ST elevation [place] (NSTEMI): Code(s): I21.4 - Non-ST elevation (NSTEMI) myocardial infarction Status: Acute Assessment and Plan: * noted trend of troponins and EKGs * Cardiology following * unfortunately, thrombocytopenia a limiting factor with regard to interventions (ie. heparin/anticoagulation, PTCA/PCI...etc) (5) Thrombocytopenia: Code(s): D69.6 - Thrombocytopenia, unspecified Status: Acute Assessment and Plan: * related to sepsis, shock, and/or bone marrow suppression * anticoagulation on hold * follow trend of platelet count (6) Anemia: Code(s): D64.9 - Anemia, unspecified Status: Chronic Assessment and Plan: * due to ESRD and acute illness * Epogen with dialysis * follow trend of H/H Greater than 20 min was spent in review of the electronic medical record as well as review his outpatient clinic notes and dialysis visits given his critical illness at this time. I suspect he will need dialytic intervention in the next 24 hr although his instability with regard to his hemodynamics may be the limiting factor of what interventions can be done in general. Would continue aggressive medical management for his electrolyte control, acidosis, and sepsis as tolerated with the hope that he will improve to better tolerate any type of dialytic intervention. I will continue follow the patient with you while he made hospitalized and make further recommendations as needed. Thank you for allowing me to participate in the care of this patient. History of Present Illness Reason for Consult Consult date: 12/02/22 Reason for consult: end stage renal disease Chief Complaint Chief complaint: Multifocal Pneumonia, Sepsis History of Present Illness Narrative: All the information I have obtained is from review of the electronic medical r ecord as well as discussion with the physician/nurses involved in the patient's care as he is currently intubated and on mechanical ventilation. It should be noted that at the time of my visit, the patient was undergoing CPR/ACLS protocol and did achieve return of systemic circulation after about 5-6 minutes. The patient is a
--- NOTE | 2022-12-02 10:12 | PM.CNNEP ---
Assessment and Plan Assessment and plan (1) End stage renal disease: Code(s): N18.6 - End stage renal disease Status: Chronic Assessment and Plan: currently transitioning from peritoneal dialysis to home hemodialysis not currently stable for any dialytic intervention at this time still has PD catheter so this could be used for peritoneal dialysis check PD fluid sample to r/o peritonitis medically manage K+ for now follow electrolytes, volume status, and clearance (2) Septic shock: Code(s): A41.9 - Sepsis, unspecified organism; R65.21 - Severe sepsis with septic shock Status: Acute Assessment and Plan: as evidenced by hypoxia/acute respiratory failure, hypotension, lactic acidosis, leukopenia, and thrombocytopenia however, was on cellcept and more recently 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 requiring vasopressor therapy at this time -- s/p central line placement follow culture data on antibiotics follow trend of hemodynamics (3) Acute respiratory failure with hypoxia: Code(s): J96.01 - Acute respiratory failure with hypoxia Status: Acute Assessment and Plan: likely due to mild fluid overload on top of multipfocal pneumonia based on imaging to date evidence of emphysema noted by imaging as welll on mechanical ventilation weaning once more stable (4) Non-ST elevation TN (NSTEMI): Code(s): I21.4 - Non-ST elevation (NSTEMI) myocardial infarction Status: Acute Assessment and Plan: noted trend of troponins and EKGs Cardiology following unfortunately, thrombocytopenia a limiting factor with regard to interventions (ie. heparin/anticoagulation, PTCA/PCI...etc) (5) Thrombocytopenia: Code(s): D69.6 - Thrombocytopenia, unspecified Status: Acute Assessment and Plan: related to sepsis, shock, and/or bone marrow suppression anticoagulation on hold follow trend of platelet count (6) Anemia: Code(s): D64.9 - Anemia, unspecified Status: Chronic Assessment and Plan: due to ESRD and acute illness Epogen with dialysis follow trend of H/H Greater than 20 min was spent in review of the electronic medical record as well as review his outpatient clinic notes and dialysis visits given his critical illness at this time. I suspect he will need dialytic intervention in the next 24 hr although his instability with regard to his hemodynamics may be the limiting factor of what interventions can be done in general. Would continue aggressive medical management for his electrolyte control, acidosis, and sepsis as tolerated with the hope that he will improve to better tolerate any type of dialytic intervention. I will continue follow the patient with you while he made hospitalized and make further recommendations as needed. Thank you for allowing me to participate in the care of this patient. History of Present Illness Reason for Consult Consult date: 12/02/22 Reason for consult: end stage renal disease Chief Complaint Chief complaint: Multifocal Pneumonia, Sepsis History of Present Illness Narrative: All the information I have obtained is from review of the electronic medical record as well as discussion with the physician/nurses involved in the patient's care as he is currently intubated and on mechanical ventilation. It should be noted that at the time of my visit, the patient was undergoing CPR/ACLS protocol and did achieve return of systemic circulation after about 5-6 minutes. The patient is a 57-year-old male with a past medical history as outlined below who presented to [facility] Emergency room yesterday evening with complaints of shortness of breath and chest pain. Apparently, the patient has been having these symptoms for last 24 hr and they seem to worsen throughout the day despite conservative therapy at home. He initially did not want to come to the emergency room b
--- NOTE | 2022-12-02 10:32 | PC.NURSE ---
after calling a code twice, pt went into spontaneous asystole and cpr began, see code sheet, Dr. Butler talked with mother who was at bedside when first code called, code stopped and called at [address] Butler, he notified Dr. Menard notified via phone
--- NOTE | 2022-12-02 11:08 | PM.DDS ---
Discharge Summary Date and Time Date of : 12/02/22 Time of : 10:14 Provider Pronounced By: Dr. Butler Probable Cause of Probable Cause of : Respiratory failure, non-STEMI with cardiac arrest Summary Hospital Course: Patient is a 57-year-old gentleman who was in the hospital for respiratory failure subsequently had to be intubated and transferred to the ICU. Around 10 15 in the morning, patient went to cardiac arrest. He was noted be in asystole. ACLS protocol was started by the ICU physician and ICU team. Mother was present at the bedside and ultimately did not want to continue with ACLS protocol. Patient subsequently Additional Data Confirmation of as documented by pronouncing clinician: Pupillary Reflex, Palpable Pulses, Response to Stimuli, Heart Tones and Breath Sounds Name of Provider Notified: Dr. Menard Time Provider Notified: 10:15 Provider Requests Autopsy: No Family Requests Autopsy: No Artificial Pl[employer] Maker Notified: Yes Date [facility] Notified of : 12/02/22 Time [facility] Notified of : 10:22
--- NOTE | 2022-12-02 13:56 | PDCODEBLUE ---
Code Blue Note Code Blue Note Time Arrived at Code Blue: 0959 on 12/02/2022 Initial Rhythm on Arrival: Asystole Airway Management: Initiated bagging pt on arrival Chest Compressions: Initiated upon arrival Result of Code Blue: Pt Cardiac Rhythm Post Code: Asystole Code Blue Summary: This is an ICU patient who suddenly went into asystole, it was caught on the monitor right away, the team rushed into the room, patient did not have any pulse, CPR was started per ACLS protocol. Patient did receive 2 doses of epinephrine, 1 dose of calcium, 1 dose of sodium bicarb and 1 does of dextrose 50%. Asystole updated 9:59 a.m. ROSC was achieved at 10:05 a.m.. Patient went into asystole again at 10:13 a.m., CPR was commenced and 1 mg of IV epinephrine was given. Mother requested to stop the CPR Time of was 10:14 a.m. on 12/02/2022 Dr. Menard was was notified
--- NOTE | 2022-12-02 22:32 | P.PCNBED_ITS ---
Procedures Central Line Placement Left IJ: Central Line Date: 12/02/22 Central Line Time: 02:30 Consent: I have discussed with the patient and/or surrogate, the non-emergent placement of a central venous catheter, including its clinical necessity/indication and associated potential risks and complications. The patient and/or surrogate understand(s) and acknowledge(s) the need to proceed with central venous catheter insertion as an important element of the patient's clinical management. Time Out Performed: Yes Patient Position: trendelenburg Patient placed on monitor/pulse ox: Yes Provider Prep: mask, sterile gown, sterile gloves, Max. sterile barrier precautions, cap and hand hygiene with conventional soap/water or alcohol based hand rub Central line prep: 2% Chlorhexidine scrub Sterile US Technique with sterile gel/sterile probe covers: Yes Central line lumen inserted: triple Romanian: 16 Length (cm): 15 Depth of Insertion (cm): 15 Post Procedure: sutured in place, good blood return, all ports aspirated, flushed, capped, transparent dressing and aseptic technique maintained throughout procedure Post procedure x-ray: tip of catheter in good position and no pneumothorax seen Patient tolerated procedure: well and no complications Complications: none Intubation Intubation Date: 12/02/22 Intubation Time: 02:00 Sedative: etomidate Mg given: 30 Paralytic: rocuronium Mg given: 80 Laryngoscope: fiber optic video scope Assist device used: fiber optic device ET tube size: 8 Tube secured depth (cm): 25 Patient tolerated procedure: no complications Intubation complications: none
== END 2022-12-02 10:14 | disposition expired | DRG 871 ==
LOC: ANHED 17:46 → ANHIMU 20:13 → ANHICU 12-02 01:34
PROVIDERS: Internal Medicine; Internal Medicine Nephrology; Admitting Provider Internal Medicine; Emergency Provider Preventive Medicine Aerospace Medicine; PCP Family Medicine; Visit Provider Chiropractor
DX: A41.9 Sepsis, unspecified organism (principal); I21.4 Non-ST elevation (NSTEMI) myocardial infarction; J18.9 Pneumonia, unspecified organism; R65.21 Severe sepsis with septic shock; J96.01 Acute respiratory failure with hypoxia; N18.6 End stage renal disease; Z68.41 Body mass index [BMI] 40.0-44.9, adult; I46.9 Cardiac arrest, cause unspecified; I12.9 Hypertensive chronic kidney disease with stage 1 through stage 4 chronic kidney disease, or unspecified chronic kidney disease; N18.9 Chronic kidney disease, unspecified; B19.20 Unspecified viral hepatitis C without hepatic coma; E66.01 Morbid (severe) obesity due to excess calories; D69.6 Thrombocytopenia, unspecified; Z99.2 Dependence on renal dialysis; Z87.891 Personal history of nicotine dependence
CPT/HCPCS: 31500; 36415; 36600; 71045; 71275; 74174; 80053; 82805; 83605; 83735; 84100; 84484; 85025; 85055; 85610; 85730; 86706; 87040; 87081; 87147; 87181; 87186; 87340; 92950; 93005; 94002; 94640; 96365; 96366; 96367; 96375; 96376; 99291; A9270; C1751; C8929; G0378; J0171; J0456; J0696; J1644; J1815; J2250; J2270; J2543; J3010; J3370; J7030; P9047; Q9957; Q9967